=== PATIENT | male | born 1990 | race Caucasian/White ===

== ENCOUNTER 2017-02-02 17:22 | Emergency (ER) | payer SELFPAY ==
[~2017-02-02] VITALS: Ht 162.6 cm; Wt 81.5 kg
[2017-02-02 17:33] VITALS: Ht 162.6 cm; Wt 81.5 kg
[2017-02-02] MEDS ORDERED: LIDOCAINE 1% (MDV) 20 ML INJ SC ONE (18:00)
[2017-02-02] MEDS ORDERED: DIPHTH/TET/ACEL PERTUSS (ADULT) 0.5 ML VIAL IM* ONE (18:00)
[2017-02-02] MEDS ORDERED: BACI28.34 TOP (19:33)
[2017-02-02] MEDS ORDERED: IBUP-1542 PO (20:01)
--- NOTE | 2017-02-02 20:48 | ERD ---
ER Documentation Chief Complaint Date/Time DATE: 02/02/17 TIME: 20:45 Chief Complaint LEFT 3RD FINGER LACERATION W/KNIFE HPI This patient is a 26-year-old male presenting to the emergency department with complaints of laceration to the anterior portion of the left fourth finger which occurred 1 hour prior to arrival. The patient is right-hand dominant. Tetanus is not up-to-date. Associated symptoms include pain. He did this with a kitchen knife and he works as a grill prep cook. No other symptoms or injuries to report currently. ROS All systems reviewed and are negative except as per history of present illness. Medications Home Meds Active Scripts Ibuprofen* (Motrin*) 600 Mg Tab, 600 MG PO Q6, #30 TAB Prov:ALEX SPENCE PA-C 02/02/17 Bacitracin* (Bacitracin Zinc Oint*) 28.35 Gm Oint, 1 APPLIC TOP BID, #1 TUB APPLI TO Prov:ALEX SPENCE PA-C 02/02/17 Allergies Allergies: Coded Allergies: No Known Allergy (Unverified , 02/02/17) PMhx/Soc History of Surgery: No Anesthesia Reaction: No Hx Neurological Disorder: No Hx Respiratory Disorders: No Hx Cardiac Disorders: No Hx Psychiatric Problems: No Hx Miscellaneous Medical Probl: No Hx Alcohol Use: No Hx Substance Use: No Hx Tobacco Use: No Smoking Status: Never smoker Physical Exam Vitals Vital Signs Date Time Temp Pulse Resp B/P Pulse Ox O2 Delivery O2 Flow Rate FiO2 02/02/17 17:33 97.9 67 18 128/81 100 Physical Exam Const: Nontoxic, well-appearing male in no distress. Head: Atraumatic Eyes: Normal Conjunctiva ENT: Normal External Ears, Nose and Mouth. Neck: Full range of motion..~ No meningismus. Resp: Clear to auscultation bilaterally Cardio: Regular rate and rhythm, no murmurs Skin: There is a full-thickness avulsion of the skin on the anterior aspect of the left fourth finger distal to the DIP joint. There is active bleeding but but hemostasis occurs with pressure. Back: No midline or flank tenderness Ext: No cyanosis, or edema Neur: Awake and alert Psych: Normal Mood and Affect Results 24 hrs Current Medications Medications (Trade) Dose Ordered Sig/Rachell Route PRN Reason Start Time Stop Time Status Last Admin Dose Admin Diphtheria/ Tetanus/Acell Pertussis (Adacel) 0.5 ml ONCE ONCE IM* 02/02/17 18:00 02/02/17 18:01 DC 02/02/17 18:24 Lidocaine (Xylocaine 1% (Mdv) 20 ml) 20 ml ONCE ONCE SC 02/02/17 18:00 02/02/17 18:01 DC Procedures/MDM 26-year-old male presents to the emergency department with complaints of laceration to the left fourth finger. Laceration Repair by me: Anesthesia: 1% lidocaine locally Location: Left fourth finger. Anterior aspect. Distal to the DIP joint line Tendon/Joint/Nerves: No injury Foreign body: None detected after copious irrigation and exploration Technique: Simple Interrupted Sutures Complexity: No subcutaneous sutures/mucosal repair/ edge excision Post Closure Length: 1 cm Patient's bleeding was easily controlled in the department and there is no indication of anemia. No evidence of compartment syndrome, neurologic injury, vascular injury, open joint, tendon laceration, or foreign body. Patient is appropriate for outpatient follow up. 48 hour wound check. Scar minimization instructions given. Departure Diagnosis: Primary Impression: Laceration Condition: Fair Patient Instructions: Laceration, All Referrals: [facility] Usted se dalal hecho un examen mdico de control que le indica que no est en jone condicin que requiera tratamiento urgente en el Departamento de Emergencia. Un estudio ms profundo y el tratamiento de argueta condicin pueden esperar sin ningn riesgo hasta que usted sea atendida/o en el consultorio de argueta mdico o joen cl sandra. Es responsabilidad suya arreglar jone otoniel para el seguimiento del mike. MANEJO DE CONDICIONES NO URGENTES EN EL FUTURO 1) Si usted tiene un mdico de atencin primaria: Usted debera llamar a argueta mdico de atencin primaria antes de venir al departamento de emergencia. Despus de las horas de consultorio, argueta doctor o argueta asociado/a est disponible por telfono. El mdico o enfermero de hanna en el servicio telefnico puede asesorarle por javier medio para atender el problema, o mike contrario se puede programar jone otoniel. 2) Si usted no tiene un mdico de atencin primaria: Llame al mdico o clnica de referencia que aparece abajo caridad las horas de consultorio para hacer jone otoniel para que le vean. CLINICAS: [facility] [id number] [facility] [phone] [facility] [phone] [place] [id number] [phone] [facility] [phone] [address] [facility] [phone] [address] Additional Instructions: Regrese en 48 horas para otra evaluacion. Regrese en 7 moreno para removar puntadas. No mas mejor en 2-3 moreno, regresar. Mas peor en 24 horas, regresear rapidamente. Ir a doctor primario in 5-7 moreno. Usar instrucciones cuando ignacia medicamento. ALEX SPENCE PA-C Feb 02, 2017 20:48
== END 2017-02-02 20:18 | disposition home or self-care (01) ==
LOC: FTE 17:22
DX: S61.215A Laceration without foreign body of left ring finger without damage to nail, initial encounter (principal); W26.0XXA Contact with knife, initial encounter; Y92.89 Other specified places as the place of occurrence of the external cause; Z23 Encounter for immunization
CPT/HCPCS: 90471; 90715